=== PATIENT | male | born 1975 | race Caucasian/White ===

== ENCOUNTER → 2020-12-01 12:56 | Outpatient (CLI) | payer BC, SELFPAY ==
--- NOTE | ~2020-12-01 | XR_ITS ---
XR fl inj shoulder RT - MR/CT DATE: 12/01/2020 13:58 INDICATION: Right shoulder pain; right glenohumeral joint contrast material injection for MR imaging TECHNIQUE: The purpose of the procedure, technique and potential complications were discussed with viviana e patient. The patient indicated understanding and gave consent. Timeout procedure was performed, confirming proper procedure and side. The skin over the anterior aspect of the right shoulder was periosteal Betadine solution. Sterile abundio pe was applied. 1% lidocaine local anesthetic was administered to the skin and underlying subcutaneou s tissues. With fluoroscopic guidance, a spinal needle was introduced into the glenohumeral joint fro m anterior approach. 12 cc of mixed diluted multi-Tabby, Omnipaque 350 and 1% lidocaine local anesthe tic was injected into the glenohumeral joint space with fluoroscopy confirming intra-articular positi on. The needle was then withdrawn. Patient tolerated the procedure well, without complaint. IMPRESSION: Pre-MRI right shoulder glenohumeral joint injection with dilute multi-Tabby, Omnipaque 35 0 Reviewed, dictated and finalized at [facility]. Reviewed, dictated and finalized at [facility]. IMPRESSION: Pre-MRI right shoulder glenohumeral joint injection with dilute mul ti-Tabby, Omnipaque 350
--- NOTE | ~2020-12-01 | MR_ITS ---
EXAMINATION: MR shoulder RT w con DATE: 12/01/2020 14:41 INDICATION: Right shoulder pain. TECHNIQUE: Magnetic resonance imaging (MRI) of the right shoulder was performed following intra-carito cular gadolinium contrast injection and without intravenous contrast. Details of the glenohumeral uli nt injection have been dictated separately. Sequences included axial T2-weighted FS FSE, axial T1-we ighted FS FSE, coronal oblique T1-weighted FS FSE, coronal oblique T2-weighted FSE, sagittal T2-weigh jena FS FSE, sagittal T1-weighted FSE, and ABER (abduction external rotation) T1-weighted FS FSE. COMPARISON: None. FINDINGS: Coracoacromial arch: The acromion is thinned suggesting prior acromioplasty. Mild acromioclavicular osteoarthritis. Rotator cuff: There are suture anchors at the cephalad aspect of the lesser tuberosity and at the junction of the s uperior and middle facets of the greater tuberosity consistent with prior rotator cuff repair. There is moderate tendinopathy centered at the conjoined portion of the supraspinatus and infraspinatus ten dons. There is intrasubstance contrast imbibition within the distal 1 cm of the tendon extending betw een otherwise intact appearing tendon fibers with small amount of contrast extending into the subacro mial/subdeltoid bursa. This is consistent with a full-thickness perforation but without a retracted t ear margin or discrete measurable tear defect. The subscapularis and teres minor tendons are normal. Normal rotator cuff muscle bulk and signal. Biceps tendon, glenoid labrum and glenohumeral cartilage: Long head of the biceps tendon is normal. Normal anterosuperior sublabral foramen. There is a small t ear along the articular side of the anteroinferior glenoid labrum best appreciated on the ABER images . Mild degenerative fraying along the free edge of the posterior superior labrum and there appears to be a suture anchor site at the 10:30 position of the glenoid rim suggesting prior labral repair. The re is mild partial-thickness cartilage loss with smooth chondral surface and without degenerative sub chondral changes along the cephalad third of the glenoid and along the apex of the humeral head. Bones and other: Small low signal intensity bone island at the posterior humeral neck. Otherwise normal marrow signal with no reactive edema, fracture or pathologic marrow replacing process. IMPRESSION: 1. Postoperative change of prior rotator cuff repair with moderate tendinopathy and full-thickness pe rforation at the conjoined portion of the supraspinatus and infraspinatus tendons which could be rela jnea to prior tear but without evident retracted tear margin or measurable tear defect. 2. Small tear along the articular side of the anteroinferior glenoid labrum and degenerative fraying along the free edge of the likely previously repaired posterior superior glenoid labrum. 3. Mild glenohumeral and acromioclavicular osteoarthritis. 4. Status post acromioplasty. Reviewed, dictated and finalized at [facility]. IMPRESSION: 1. Postoperative change of prior rotator cuff repair with moderate tendinopathy and full-thickness perforation at the conjoined portion of the supraspinatus a nd infraspinatus tendons which could be related to prior tear but without evide nt retracted tear margin or measurable tear defect. 2. Small tear along the articular side of the anteroinferior glenoid labrum and degenerative fraying along the free edge of the likely previously repaired pos terior superior glenoid labrum. 3. Mild glenohumeral and acromioclavicular osteoarthritis. 4. Status post acromioplasty.
== END ==
PROVIDERS: PCP Internal Medicine; Visit Provider Physician Assistant
DX: M25.511 Pain in right shoulder (principal)
CPT/HCPCS: 23350; 73222; 77002; A9577; Q9966